=== PATIENT | female | born 1950 | race Caucasian/White ===

== ENCOUNTER → 2017-12-15 14:51 | Outpatient (CLI) | payer MEDICARE ==
[2017-12-15 15:31] LABS: APPEARANCE CLEAR (CLEAR); BILIRUBIN NEGATIVE (NEGATIVE); COLOR YELLOW (YELLOW); GLUCOSE 100 mg/dL (NEGATIVE); KETONE NEGATIVE (NEGATIVE); NITRITE NEGATIVE (NEGATIVE); PROTEIN NEGATIVE (NEGATIVE); UROBILINOGEN NORMAL (NORMAL); WHITE CELLS - URINE NSEEN /hpf (0-5)
[2017-12-15 15:32] LABS: BACTERIA NONE SEEN /hpf (NONE SEEN); EPITHELIAL CELLS NSEEN /hpf (0-5); RED CELLS - URINE NONE SEEN /hpf (0-5)
== END | disposition home or self-care (01) ==
LOC: D.LABREF 14:51
PROVIDERS: Family Medicine
DX: N18.9 Chronic kidney disease, unspecified (principal); E11.9 Type 2 diabetes mellitus without complications

== ENCOUNTER → 2018-04-18 18:15 | Outpatient (CLI) | payer MEDICARE | END | disposition home or self-care (01) | LOC: D.MAMMO 14:30 | DX: Z12.31 Encounter for screening mammogram for malignant neoplasm of breast (principal) ==

== ENCOUNTER 2019-11-02 11:15 | Outpatient (CLI) | payer MEDICARE | END 2019-11-02 11:45 | disposition home or self-care (01) | LOC: D.MAMMO 11:15 | PROVIDERS: ATTEND Nurse Practitioner Family | DX: Z12.31 Encounter for screening mammogram for malignant neoplasm of breast (principal) ==

== ENCOUNTER 2020-06-23 12:13 | Emergency (ER) | payer MEDICARE ==
[~2020-06-23] VITALS: Ht 165.1 cm; Wt 68.2 kg
[2020-06-23 12:28] VITALS: Ht 165.1 cm; Wt 68.2 kg
[2020-06-23 13:12] LABS: BASOPHILS 0.3 % (0-2); CALC OSMOLALITY 297 mosm/kg (275-300); CALCIUM 10.1 mg/dL (8.5-10.1); CARBON DIOXIDE 31.8 mmol/L (21.0-32.0); CHLORIDE - SERUM 104 mmol/L (98-107); CREATININE - SERUM 1.6 mg/dL (0.6-1.3); EOSINOPHILS 0.9 % (0-7); GLUCOSE 195 mg/dL (74-106); HEMATOCRIT 41.9 % (36.0-48.0); HEMOGLOBIN 14.5 g/dL (12-16); IMMATURE GRANULOCYTES 0.3 % (0-5); LYMPHOCYTE ABS# 1.63 10x3/uL (1.18-3.74); LYMPHOCYTES 13.6 % (15-50); MCH 30.8 pg (26.0-34.0); MCHC 34.6 g/dL (31.0-37.0); MEAN PLATELET VOLUME 10.2 fL (7.4-10.4); MONOCYTES 6.3 % (2-11); NEUTROPHIL ABS# 9.41 10x3/uL (1.56-6.13); NEUTROPHILS 78.6 % (40-80); PLATELET COUNT 428 10x3/uL (130-400); POTASSIUM - SERUM 3.5 mmol/L (3.5-5.1); RBC 4.71 10x6/uL (4.00-5.40); RDW 12.9 % (11.5-14.5); SODIUM 145 mmol/L (136-145); UREA NITROGEN 25 mg/dL (7-18); eGFR NON AFRICAN AMERICAN 34 mL/min (90-120)
[2020-06-23] MEDS ORDERED: ABILIFY2 MG PO (13:16)
[2020-06-23] MEDS ORDERED: ZOCOR20 MG PO (13:16)
[2020-06-23] MEDS ORDERED: OXYBUTYNIN CHLOR5 MG PO (13:17)
[2020-06-23] MEDS ORDERED: NORVASC10 MG PO (13:17)
[2020-06-23] MEDS ORDERED: PLAVIX75 MG PO (13:17)
[2020-06-23] MEDS ORDERED: HUMALOG MIX 75/10 ML SC (13:18)
[2020-06-23] MEDS ORDERED: LISINOPRIL40 MG PO (13:18)
[2020-06-23] MEDS ORDERED: GLIPIZIDE5 MG PO (13:18)
[2020-06-23 13:25] LABS: ALBUMIN 4.1 g/dL (3.4-5.0); ALKALINE PHOSPHATASE 76 U/L (30-120); ALT (SGPT) 20 U/L (10-68); BILIRUBIN - TOTAL 0.62 mg/dL (0.2-1.3); LIPASE 76 U/L (73-393); MAGNESIUM - SERUM 2.5 mg/dL (1.8-2.4); PRO BNP 767 pg/mL (0-125); PROTEIN - SERUM 8.5 g/dL (6.4-8.2); THYROID STIMULATING HORMONE 3.22 uIU/mL (0.36-3.74)
[2020-06-23 13:26] LABS: TROPONIN-I < 0.017 ng/mL (0.000-0.060)
[2020-06-23 13:27] LABS: UDS - AMPHET NEGATIVE QUAL (NEGATIVE); UDS - BARB NEGATIVE QUAL (NEGATIVE); UDS - BENZO NEGATIVE QUAL (NEGATIVE); UDS - COCAINE NEGATIVE QUAL (NEGATIVE); UDS - OPIATE NEGATIVE QUAL (NEGATIVE); UDS - PCP NEGATIVE QUAL (NEGATIVE); UDS - THC POSITIVE QUAL (NEGATIVE)
[2020-06-23 13:50] LABS: BILIRUBIN NEGATIVE (NEGATIVE); KETONE NEGATIVE (NEGATIVE); NITRITE NEGATIVE (NEGATIVE); UROBILINOGEN NORMAL mg/dL (< 2)
[2020-06-23 13:51] LABS: SQUAMOUS EPITHELIAL 0-5 HPF (0-4); WHITE CELLS - URINE RARE HPF (0-4)
[2020-06-23 13:52] LABS: AMORPHOUS SEDIMENT <1+ LPF (NONE SEEN); BACTERIA FEW HPF (NONE SEEN)
[2020-06-23 16:10] VITALS: BP 195/84
== END 2020-06-23 16:10 | disposition home or self-care (01) ==
LOC: D.ER 12:13
PROVIDERS: Family Medicine
DX: F03.90 Unspecified dementia, unspecified severity, without behavioral disturbance, psychotic disturbance, mood disturbance, and anxiety (principal)